=== PATIENT | female | born 1965 | race African-American/Black ===

== ENCOUNTER 2023-09-28 07:11 | Inpatient (IN) | payer BC, OTHER, SELFPAY ==
[2023-09-28 07:56] LABS: #Eosinphils 0.1 thou/uL (0.0-0.7); #Monocytes 0.6 thou/uL (0.11-0.59); %Basophils 0.2 % (0.0-1.0); %Eosinophils 0.6 % (0.0-10.0); %Lymphocytes 8.2 % (21.0-51.0); %Monocytes 6.7 % (0.0-10.0); %Neutrophils 83.7 % (42.0-75.0); Hematocrit 47.8 % (36.0-47.0); Hemoglobin 15.9 g/dL (12.0-16.0); Mean Corpuscular HGB CONC 33.3 g/dL (32.0-36.0); Mean Corpuscular Hemoglobin 30.3 pg (27.0-31.0); Mean Corpuscular Volume 91.2 fl (78.0-98.0); Mean Platelet Volume 11.1 fL (7.4-10.4); Platelet Count 230 10x3/uL (130-400); RBC Distribution Width 12.8 % (11.5-14.5); Red Blood Cell (RBC) Count 5.24 mill/uL (4.20-5.40); White Blood Cell (WBC) Count 8.3 10x3/uL (4.8-10.8)
[2023-09-28 08:18] LABS: ALT (SGPT) 16 U/L (8-55); AST (SGOT) 20 U/L (5-34); Albumin 4.6 g/dL (3.5-5.0); Alkaline Phosphatase 67 U/L (40-110); Anion Gap 15 mmol/L (10-20); BUN (Urea Nitrogen) 12 mg/dL (9.8-20.1); Bilirubin, Total 0.5 mg/dL (0.2-1.2); Calc. Creatinine Clearance 0 mL/min (70-130); Calcium 9.9 mg/dL (7.8-10.44); Carbon Dioxide 20 mmol/L (22-29); Chloride 105 mmol/L (98-107); Estimated GFR 74; Glucose 149 mg/dL (70-105); Lipase 455 U/L (8-78); Potassium 3.8 mmol/L (3.5-5.1); Protein, Total 8.6 g/dL (6.0-8.3); Sodium 136 mmol/L (136-145)
[2023-09-28 08:56] LABS: Troponin I Less than 0.010 ng/mL (< 0.028)
[2023-09-28] MEDS ORDERED: Iopamidol-370 76% 500 ML MDV (1 ML CHARGE) ONE (09:13)
[2023-09-28] MEDS ORDERED: Ondansetron PF 4 MG/2 ML Vial ONE (09:23)
[2023-09-28] MEDS ORDERED: Morphine 4 MG/ML VIAL ONE (09:23)
[2023-09-28] MEDS ORDERED: Dicyclomine 20 MG/2 ML VIAL ONE (09:26)
[2023-09-28 11:09] LABS: Bacteria/HPF None Seen HPF (None Seen); Bilirubin Negative (Negative); Blood, Urine 1+ (Negative); CAUTI Indications for Culture Dysuria,urgency,freq; Clarity Clear (Clear); Glucose, Urine (Dipstick) Normal (Negative); Ketone, Urine 10 mg/dL (Negative); Leukocyte Negative Leu/uL (Negative); Nitrite Negative (Negative); Protein, Urine (Dipstick) 20 mg/dL (Neg-Trace); RBC/HPF 0-3 HPF (0-3); Squamous Epithelial None Seen HPF (0-3); Urobilinogen Normal mg/dL (Less than 2); WBC/HPF 0-3 HPF (0-3); pH, Urine 5.5 (5.0-9.0)
[2023-09-28 11:13] LABS: Specific Gravity, Urine Greater than 1.060 (1.002-1.036)
[2023-09-28 11:14] LABS: Urine Culture Reflex No No
[2023-09-28] MEDS ORDERED: Acetaminophen 325 MG TAB PO PRN (11:36)
[2023-09-28] MEDS ORDERED: metroNIDAZOLE 500 MG/100 ML BAG ONE (11:42)
[2023-09-28 11:45] LABS: Campy jejuni + coli by PCR Negative (Negative); STEC Shiga Toxin 1+2 Negative (Negative); Salmonella spp. by PCR Negative (Negative); Shigella spp + EIEC by PCR Negative (Negative)
[2023-09-28] MEDS ORDERED: Electrolyte Replacement Protocol 1 EACH FS SCH (11:45)
[2023-09-28] MEDS ORDERED: Electrolyte Replacement Protocol FS PRN (12:15)
[2023-09-28 12:37] LABS: Cardiac Risk 4.3 (Less than 4.5)
[2023-09-28] MEDS ORDERED: Ciprofloxacin Lactate/D5W 400 mg/200 ml Premix ONE (12:49)
[2023-09-28] MEDS: Sodium Chloride 0.9% 1,000 ML IV SCH ×3 (13:30→20:05)
[2023-09-28] MEDS: Ondansetron PF 4 MG/2 ML Vial IVP PRN ×2 (13:31→20:37)
[2023-09-28 15:02] LABS: SARS-CoV-2 NAA Rapid Test Not Detected (NotDetected)
[2023-09-28 16:04] VITALS: BMI 35.2
[2023-09-28] MEDS: Morphine 2 MG/ML VIAL SLOW IVP PRN ×2 (16:50→21:34)
[2023-09-28] MEDS: Famotidine/PF 20 mg/2ml Vial SLOW IVP SCH (19:59)
[2023-09-28] MEDS: Ketorolac Tromethamine 30 MG/ML VIAL IVP PRN (20:00)
[2023-09-28] MEDS: Famotidine 20 MG TAB PO SCH (20:05)
[2023-09-29] MEDS: Morphine 2 MG/ML VIAL SLOW IVP PRN ×2 (01:55→23:24)
[2023-09-29] MEDS: Loperamide HCl 2 MG CAP PO PRN (01:56)
[2023-09-29] MEDS: Sodium Chloride 0.9% 1,000 ML IV SCH ×5 (01:56→20:20)
[2023-09-29] MEDS: Ketorolac Tromethamine 30 MG/ML VIAL IVP PRN ×3 (06:01→18:50)
[2023-09-29 06:39] LABS: Hemoglobin A1c 6.8 % (4.0-6.0)
[2023-09-29 07:42] LABS: #Monocytes 0.4 thou/uL (0.11-0.59); #Neutrophils 4.4 thou/uL (1.40-6.50); %Basophils 0.2 % (0.0-1.0); %Eosinophils 0.2 % (0.0-10.0); %Lymphocytes 16.1 % (21.0-51.0); %Monocytes 7.1 % (0.0-10.0); %Neutrophils 75.9 % (42.0-75.0); Mean Corpuscular HGB CONC 33.8 g/dL (32.0-36.0); Mean Corpuscular Hemoglobin 31.4 pg (27.0-31.0); Mean Platelet Volume 10.8 fL (7.4-10.4); Platelet Count 175 10x3/uL (130-400); RBC Distribution Width 12.9 % (11.5-14.5); Red Blood Cell (RBC) Count 4.01 mill/uL (4.20-5.40); White Blood Cell (WBC) Count 5.8 10x3/uL (4.8-10.8)
[2023-09-29 07:43] LABS: Hematocrit 37.3 % (36.0-47.0); Hemoglobin 12.6 g/dL (12.0-16.0)
[2023-09-29] MEDS: Famotidine 20 MG TAB PO SCH ×2 (08:03→20:13)
[2023-09-29] MEDS: Famotidine/PF 20 mg/2ml Vial SLOW IVP SCH ×3 (08:04→20:19)
[2023-09-29 09:13] LABS: Albumin 3.1 g/dL (3.5-5.0)
[2023-09-29 09:14] LABS: Chloride 109 mmol/L (98-107); Potassium 3.3 mmol/L (3.5-5.1); Sodium 134 mmol/L (136-145)
[2023-09-29 09:16] LABS: Globulin 2.7 g/dL (2.4-3.5); Glucose 96 mg/dL (70-105)
[2023-09-29 09:17] LABS: Anion Gap 10 mmol/L (10-20); Bilirubin, Total 0.3 mg/dL (0.2-1.2); Carbon Dioxide 18 mmol/L (22-29)
[2023-09-29 09:18] LABS: Alkaline Phosphatase 48 U/L (40-110)
[2023-09-29 09:19] LABS: Calc. Creatinine Clearance 117 mL/min (70-130); Estimated GFR 94; Phosphorus 1.7 mg/dL (2.3-4.7)
[2023-09-29 09:20] LABS: BUN (Urea Nitrogen) 8 mg/dL (9.8-20.1)
[2023-09-29 09:21] LABS: ALT (SGPT) 13 U/L (8-55); AST (SGOT) 22 U/L (5-34); Magnesium 1.5 mg/dL (1.6-2.6)
[2023-09-29 09:24] LABS: Calcium 7.3 mg/dL (7.8-10.44); Protein, Total 5.8 g/dL (6.0-8.3)
[2023-09-29] MEDS ORDERED: Potassium Chloride 20 MEQ TAB PO SCH (13:00)
[2023-09-29] MEDS ORDERED: Magnesium 2 GM/50 ML(in water) 2 GM in Premix 1 BAG IVPB SCH (14:00)
[2023-09-29] MEDS: PHOS-NAK 1 PKT PACK PO SCH ×2 (14:25→16:43)
[2023-09-30] MEDS: Sodium Chloride 0.9% 1,000 ML IV SCH ×4 (03:04→17:33)
[2023-09-30 06:09] LABS: ALT (SGPT) 19 U/L (8-55); AST (SGOT) 29 U/L (5-34); Alkaline Phosphatase 45 U/L (40-110); Anion Gap 11 mmol/L (10-20); BUN (Urea Nitrogen) 5 mg/dL (9.8-20.1); Bilirubin, Total 0.2 mg/dL (0.2-1.2); Calc. Creatinine Clearance 127 mL/min (70-130); Calcium 7.4 mg/dL (7.8-10.44); Carbon Dioxide 17 mmol/L (22-29); Chloride 112 mmol/L (98-107); Estimated GFR 100; Globulin 2.7 g/dL (2.4-3.5); Glucose 80 mg/dL (70-105); Lipase 40 U/L (8-78); Magnesium 2.1 mg/dL (1.6-2.6); Phosphorus 1.7 mg/dL (2.3-4.7); Potassium 4.2 mmol/L (3.5-5.1); Protein, Total 5.7 g/dL (6.0-8.3); Sodium 136 mmol/L (136-145)
[2023-09-30 06:42] LABS: #Eosinphils 0.1 thou/uL (0.0-0.7); #Monocytes 0.4 thou/uL (0.11-0.59); #Neutrophils 2.1 thou/uL (1.40-6.50); %Basophils 0.5 % (0.0-1.0); %Eosinophils 1.3 % (0.0-10.0); %Lymphocytes 33.5 % (21.0-51.0); %Monocytes 10.8 % (0.0-10.0); %Neutrophils 53.4 % (42.0-75.0); Hemoglobin 11.6 g/dL (12.0-16.0); Mean Corpuscular HGB CONC 32.2 g/dL (32.0-36.0); Mean Corpuscular Hemoglobin 30.5 pg (27.0-31.0); Mean Corpuscular Volume 94.7 fl (78.0-98.0); Platelet Count 159 10x3/uL (130-400)
[2023-09-30] MEDS: Famotidine/PF 20 mg/2ml Vial SLOW IVP SCH ×2 (08:43→21:23)
[2023-09-30] MEDS: Famotidine 20 MG TAB PO SCH ×2 (08:44→21:23)
[2023-09-30] MEDS: PHOS-NAK 1 PKT PACK PO SCH ×2 (08:44→11:24)
[2023-09-30] MEDS: Loperamide HCl 2 MG CAP PO PRN (11:27)
[2023-09-30] MEDS ORDERED: GoLYTELY 4,000 ml Bottle PO SCH (16:30)
[2023-09-30] MEDS: Loperamide HCl 2 MG CAP PO SCH (21:23)
[2023-09-30] MEDS: Morphine 2 MG/ML VIAL SLOW IVP PRN (21:30)
[2023-10-01] MEDS: Sodium Chloride 0.9% 1,000 ML IV SCH ×4 (03:12→17:16)
[2023-10-01 06:08] LABS: Hematocrit 36.4 % (36.0-47.0); Mean Corpuscular Hemoglobin 30.1 pg (27.0-31.0); Mean Corpuscular Volume 91.2 fl (78.0-98.0); Platelet Count 145 10x3/uL (130-400); RBC Distribution Width 12.8 % (11.5-14.5); Red Blood Cell (RBC) Count 3.99 mill/uL (4.20-5.40); White Blood Cell (WBC) Count 3.8 10x3/uL (4.8-10.8)
[2023-10-01 06:13] LABS: Delete Auto Diff?? YES; Manual Diff?? YES
[2023-10-01 06:36] LABS: ALT (SGPT) 20 U/L (8-55); AST (SGOT) 25 U/L (5-34); Albumin 3.1 g/dL (3.5-5.0); Alkaline Phosphatase 45 U/L (40-110); Anion Gap 11 mmol/L (10-20); BUN (Urea Nitrogen) Less than 4 mg/dL (9.8-20.1); Bilirubin, Total 0.3 mg/dL (0.2-1.2); Calc. Creatinine Clearance 138 mL/min (70-130); Calcium 7.7 mg/dL (7.8-10.44); Carbon Dioxide 19 mmol/L (22-29); Chloride 112 mmol/L (98-107); Estimated GFR 102; Globulin 2.7 g/dL (2.4-3.5); Glucose 83 mg/dL (70-105); Magnesium 1.9 mg/dL (1.6-2.6); Phosphorus 1.6 mg/dL (2.3-4.7); Potassium 3.7 mmol/L (3.5-5.1); Protein, Total 5.8 g/dL (6.0-8.3); Sodium 138 mmol/L (136-145)
[2023-10-01 06:43] LABS: Band 10 % (5-11); CellaVision Operator ID lab.abc; Eosinophils 1 % (0-10); Lymphocytes 27 % (21-51); Monocytes 8 % (0-10); Neutrophil 51 % (42-75); Platelet Adequacy Comment Platelets Normal; RBC Morphology Within Normal Limits; Reactive Lymphocytes 2 % (0-10); Total Cell Count 100
[2023-10-01 07:08] VITALS: BP 176/79; TEMP 98.1
[2023-10-01] MEDS ORDERED: Magnesium 2 GM/50 ML(in water) 2 GM in Premix 1 BAG IVPB SCH (08:00)
[2023-10-01] MEDS ORDERED: Potassium Phosphate 15 MMOL in Sodium Chloride 0.9% 100 ML IVPB SCH (08:00)
[2023-10-01] MEDS ORDERED: PROPOFOL 40 ML ONE (08:48)
[2023-10-01] MEDS ORDERED: Lidocaine 1% PF 5 ML VIAL ONE ×2 (08:48→09:34)
[2023-10-01] MEDS ORDERED: PROPOFOL 200 MG/20 ML VIAL ONE (09:34)
[2023-10-01] MEDS ORDERED: Simethicone 40 MG/0.6 ML Drop 30 ML BOT ONE (09:43)
[2023-10-01] MEDS ORDERED: Promethazine HCl 25 MG/ML VIAL IM PRN (09:49)
[2023-10-01] MEDS ORDERED: Ondansetron HCl/PF 4 MG/2 ML Vial IVP PRN (09:49)
[2023-10-01] MEDS ORDERED: PROPOFOL 20 ML ONE (09:58)
[2023-10-01] MEDS: Famotidine 20 MG TAB PO SCH (13:03)
[2023-10-01] MEDS: Loperamide HCl 2 MG CAP PO SCH ×2 (13:03→17:16)
[2023-10-01] MEDS: Famotidine/PF 20 mg/2ml Vial SLOW IVP SCH (13:03)
[2023-10-02 10:13] LABS: Adenovirus F 40-41 Not Detected (Not Detected); Astrovirus Not Detected (Not Detected); C. difficile toxin A+B Not Detected (Not Detected); Campylobacter by PCR Not Detected (Not Detected); Cryptosporidium Not Detected (Not Detected); Cyclospora cayetanensis Not Detected (Not Detected); Entamoeba histolytica Not Detected (Not Detected); Enteroaggregative E. coli Not Detected (Not Detected); Enteropathogenic E. coli DETECTED (Not Detected); Enterotoxigenic E. coli Not Detected (Not Detected); Giardia lamblia Not Detected (Not Detected); Norovirus GI-GII Not Detected (Not Detected); Plesiomonas shigelloides Not Detected (Not Detected); Rotavirus A DETECTED (Not Detected); Salmonella Not Detected (Not Detected); Sapovirus Not Detected (Not Detected); Shiga-toxin-producing E coli Not Detected (Not Detected); Shigella/Enteroinvasive E coli Not Detected (Not Detected); Vibrio Not Detected (Not Detected); Vibrio cholerae Not Detected (Not Detected); Yersinia enterocolitica Not Detected (Not Detected)
== END 2023-10-01 18:09 | disposition home or self-care (01) | DRG 392 ==
LOC: SUATTDRO 07:11 → ERS 07:11 → T4-B 11:36 → OBSVTOIN 09-29 16:03
PROVIDERS: ADMIT Family Medicine; ATTEND Emergency Medicine
PROC: 0DBP8ZZ Excision of Rectum, Via Natural or Artificial Opening Endoscopic (ICD-10-PCS; principal; 2023-10-01)
PROC: 0DBN8ZZ Excision of Sigmoid Colon, Via Natural or Artificial Opening Endoscopic (ICD-10-PCS; 2023-10-01)
DX: A09 Infectious gastroenteritis and colitis, unspecified (principal); K62.1 Rectal polyp; D12.5 Benign neoplasm of sigmoid colon; F17.210 Nicotine dependence, cigarettes, uncomplicated; Z79.899 Other long term (current) drug therapy; Z90.89 Acquired absence of other organs; Z90.49 Acquired absence of other specified parts of digestive tract; Z71.6 Tobacco abuse counseling; Z98.890 Other specified postprocedural states; Z11.52 Encounter for screening for COVID-19
CPT/HCPCS: 36415; 74177; 80053; 80061; 81001; 83036; 83690; 83735; 84100; 84443; 84484; 85025; 87324; 87449; 87505; 87507; 88305; 93005; 96361; 96365; 96372; 96375; 96376; G0378; J0744; J1885; J2270; J2272; J2405; J2704; J3475; J7050; Q9967; S0028